=== PATIENT | female | born 1980 | race Caucasian/White ===

== ENCOUNTER → 2021-02-23 09:03 | Outpatient (CLI) | payer OTHER, SELFPAY ==
--- NOTE | ~2021-02-23 | MR_ITS ---
EXAMINATION: MR cervical spine wo [facility] EXAM DATE: 02/23/2021 09:55 INDICATION: Neck pain, bilateral arm numbness and tingling. Symptoms 3 years. TECHNIQUE: Multi-sequential, multiplanar MR images of the cervical spine were obtained without contra st. Axial T2, axial T2 MERGE sequence. Sagittal T1, T2, T2 fat saturation images also obtained. Th ere is no prior study for comparison. FINDINGS: The vertebral bodies are aligned in the AP dimension. There is mild disc disease C4-5. The vertebral body and disc heights are otherwise well maintained. The spinal cord signal intensity and intrinsic morphology is normal. Cervicomedullary junction is normal in appearance. There are no suspi cious marrow signal abnormalities. Paraspinal soft tissue is unremarkable. Level by level evaluation: C2-C3: Disc does not extend beyond the endplate margin. Uncovertebral joint arthropathy: Minimal bilateral. Facet joint arthropathy: Mild bilateral. Neural foraminal stenosis: No stenosis. Central canal stenosis: No stenosis. C3-C4: Disc does not extend beyond the endplate margin. Uncovertebral joint arthropathy: Mild bilateral. Facet joint arthropathy: Mild bilateral. Neural foraminal stenosis: No stenosis. Central canal stenosis: No stenosis. C4-C5: There is a mild diffuse disc bulge. Uncovertebral joint arthropathy: Mild to moderate bilateral. Facet joint arthropathy: Mild to moderate bilateral. Neural foraminal stenosis: Mild to moderate bilateral, right greater than left. Central canal stenosis: No stenosis. C5-C6: Disc does not extend beyond the endplate margin. Uncovertebral joint arthropathy: Mild bilateral. Facet joint arthropathy: Mild to moderate bilateral. Neural foraminal stenosis: No stenosis. Central canal stenosis: No stenosis. C6-C7: Disc does not extend beyond the endplate margin. Uncovertebral joint arthropathy: Mild bilateral. Facet joint arthropathy: Mild bilateral. Neural foraminal stenosis: Mild left. Central canal stenosis: No stenosis. C7-T1: Disc does not extend beyond the endplate margin. Uncovertebral joint arthropathy: Mild to moderate left, mild right. Facet joint arthropathy: Mild to moderate left, mild right. Neural foraminal stenosis: Mild to moderate left. Central canal stenosis: No stenosis. 1. IMPRESSION: Mild to moderate arthropathy as above. Reviewed, dictated and finalized at location B.
== END ==
PROVIDERS: PCP Internal Medicine
DX: M47.813 Spondylosis without myelopathy or radiculopathy, cervicothoracic region (principal); M48.03 Spinal stenosis, cervicothoracic region; M05.10 Rheumatoid lung disease with rheumatoid arthritis of unspecified site
CPT/HCPCS: 72141

== ENCOUNTER 2024-03-28 10:08 | Outpatient (CLI) | payer BC, SELFPAY ==
--- NOTE | ~2024-03-28 | MR_ITS ---
MRI of the lumbar spine Clinical History: Radiculopathy Technique: Axial T2-weighted images, and sagittal T1-weighted, T2-weighted, and and T2 fat-sat images were acquired. Findings: No fracture seen. There is 2 mm retrolisthesis of L5 over S1. No suspicious bone marrow sig nal abnormality seen. At L1-L2, L2-L3, there is no disc bulge or herniation. There are moderate facet joint degenerative ch anges. No spinal canal stenosis or neural foraminal narrowing at these levels. At L3-L4 and L4-L5, there are minimal disc bulges with advanced facet joint degenerative changes. No spinal canal stenosis. There is minimal bilateral neural foraminal narrowing at L3-L4. There is moder ate bilateral neural foraminal narrowing at L4-L5. At L5-S1, there is advanced degenerative disc narrowing. There is diffuse disc bulge with possible jensen perimposed protrusion at the central region. There is advanced facet arthropathy. No graham central ca nal stenosis. There is severe bilateral neural foraminal comprise. Paravertebral soft tissues are unremarkable. Impression: Advanced degenerative spondylosis at L5-S1, as detailed above. [id number] degenerative spondylosis at L4-L5. Additional mild degenerative changes, as above. Reviewed, dictated and finalized at location . Impression: Advanced degenerative spondylosis at L5-S1, as detailed above. [id number] degenerative spondylosis at L4-L5. Additional mild degenerative changes, as above.
== END 2024-03-28 10:09 | disposition home or self-care (01) ==
PROVIDERS: PCP Physical Medicine & Rehabilitation; Visit Provider Physical Medicine & Rehabilitation
DX: M47.817 Spondylosis without myelopathy or radiculopathy, lumbosacral region (principal); M47.816 Spondylosis without myelopathy or radiculopathy, lumbar region; M51.379 Other intervertebral disc degeneration, lumbosacral region without mention of lumbar back pain or lower extremity pain; M51.369 Other intervertebral disc degeneration, lumbar region without mention of lumbar back pain or lower extremity pain; M54.16 Radiculopathy, lumbar region
CPT/HCPCS: 72148